=== PATIENT | female | born 1985 | race African-American/Black ===

== ENCOUNTER 2022-07-25 10:41 | Inpatient (IN) | payer MEDICAID ==
[~2022-07-25] VITALS: Ht 162.6 cm; Wt 90.7 kg
[2022-07-25] MEDS ORDERED: ONDANSETRON HCL 4MG/2ML INJ IV STA (10:58)
[2022-07-25] MEDS ORDERED: SODIUM CHLORIDE 0.9% 1,000 ML IV ONE ×3 (11:00→19:15)
[2022-07-25] MEDS ORDERED: FAMOTIDINE 20MG/2ML VIAL IV ONE (11:00)
[2022-07-25 12:00] LABS: CLARITY URINE CLEAR (CLEAR); COLOR URINE YELLOW (YELLOW); KETONES URINE 4+ (NEGATIVE); LEUKOCYTE ESTERASE URINE NEGATIVE (NEGATIVE); NITRITE URINE NEGATIVE (NEGATIVE); OCCULT BLOOD URINE 2+ (NEGATIVE); PROTEIN URINE 1+ (NEGATIVE); SPECIFIC GRAVITY URINE 1.028 (1.005-1.030); UROBILINOGEN URINE 0.2 E.U./dL (0.2-1.0)
[2022-07-25 12:42] LABS: BG BASE EXCESS -13.5 mmol/L (-2.0-2.0); BG CARBOXYHEMOGLOBIN 0.7 % (0.5-1.5); BG DEOXYHEMOGLOBIN 3.4 % (0.0-5.0); BG FRACTION INSPIRED OXYGEN 21; BG HCO3 ACT 11.5 mmol/L (22.0-26.0); BG METHEMOGLOBIN 0.4 % (0.0-1.5); BG OXYGEN SATURATION 96.6 % (92.0-98.5); BG OXYHEMOGLOBIN 95.5 % (94.0-97.0); BG PCO2 25.2 mmHg (35.0-45.0); BG PH 7.277 (7.350-7.450); BG PO2 90.5 mmHg (75.0-100.0); BG SAMPLE SITE RIGHT BRACHIAL; BG TOTAL HEMOGLOBIN 13.5 g/dL (12.0-18.0); BG VENT MODE ROOM AIR
[2022-07-25 12:58] LABS: *AMPHETAMINES SCREEN URINE NEGATIVE (NEGATIVE); *BARBITURATES SCREEN URINE NEGATIVE (NEGATIVE); *BENZODIAZEPINES SCREEN URINE NEGATIVE (NEGATIVE); *COCAINE SCREEN URINE NEGATIVE (NEGATIVE); CANNABINOID URINE SCREEN NEGATIVE (NEGATIVE); METHADONE URINE SCREEN NEGATIVE (NEGATIVE); OPIATES URINE SCREEN NEGATIVE (NEGATIVE); PHENCYCLIDINE URINE SCREEN NEGATIVE (NEGATIVE)
[2022-07-25 13:02] LABS: BASOPHILS % 0.4 % (0.0-2.0); EOSINOPHILS % 0.1 % (0.0-5.0); HEMATOCRIT. 41.4 % (36.0-48.0); HEMOGLOBIN. 13.2 g/dL (12.0-16.0); LYMPHOCYTES % 7.4 % (20.0-50.0); MEAN CORPUSCULAR VOLUME 81.7 fL (81.0-99.0); MEAN PLATELET VOLUME 9.5 fl (7.4-10.4); MONOCYTES % 14.6 % (2.0-8.0); NEUTROPHILS % 77.5 % (40.0-76.0); PLATELET 299 x1000/uL (130-400); RED BLOOD CELL COUNT 5.06 mill/uL (4.2-5.4)
[2022-07-25 13:07] LABS: HCG SCREEN NEGATIVE
[2022-07-25] MEDS ORDERED: CEFTRIAXONE 1GM PREMIX 50 ML IV ONE (14:15)
[2022-07-25] MEDS ORDERED: IPRATROPIUM/ALBUTEROL 0.5-3(2.5)MG/3ML NEB HHN PRN (16:30)
[2022-07-25] MEDS ORDERED: ONDANSETRON HCL 4MG/2ML INJ IV PRN (16:30)
[2022-07-25] MEDS ORDERED: MAGNESIUM/ALUMINUM HYDROXIDE/SIMETHICONE 30ML UDC PO PRN (16:30)
[2022-07-25] MEDS ORDERED: DOCUSATE SODIUM 100MG CAPSULE PO PRN (16:30)
[2022-07-25] MEDS ORDERED: CLONIDINE 0.1MG TABLET PO PRN (16:30)
[2022-07-25] MEDS ORDERED: HYDROCODONE/ACETAMINOPHEN 5/325MG TABLET PO PRN (16:30)
[2022-07-25] MEDS ORDERED: GUAIFENESIN 200MG/10ML SUGAR FREE UDC PO PRN (16:30)
[2022-07-25] MEDS ORDERED: ACETAMINOPHEN 325MG TABLET PO PRN ×2 (16:30)
[2022-07-25] MEDS ORDERED: NALOXONE HCL 0.4MG/ML VIAL IV PRN (16:45)
[2022-07-25] MEDS ORDERED: DEXT 5%/0.45% NACL 1000ML 1,000 ML IV SCH (16:45)
[2022-07-25] MEDS ORDERED: SODIUM CHLORIDE 0.45% 1,000 ML IV SCH (17:15)
[2022-07-25] MEDS ORDERED: LEVOFLOXACIN 750MG PREMIX 150 ML IV NR (17:30)
[2022-07-25 18:39] LABS: CHLORIDE 98 mEq/L (98-107)
[2022-07-25 18:47] LABS: ETHANOL BLOOD < 10 mg/dL
[2022-07-25] MEDS ORDERED: INSULIN REGULAR (HUMULIN R) 300UNITS/3ML VIAL IV NR (19:27)
[2022-07-25] MEDS ORDERED: DEXTROSE 50% WATER 50ML SYRINGE IV PRN ×2 (19:30→21:30)
[2022-07-25] MEDS ORDERED: MORPHINE SULFATE 4 MG/ML CPJ (NOT FOR IM USE) IV ONE (19:45)
[2022-07-25] MEDS ORDERED: SODIUM CHLORIDE 0.9% 1,000 ML IV SCH ×2 (19:45→21:30)
[2022-07-25] MEDS ORDERED: BLOOD SUGAR DIAGNOSTIC STRIP TEST SCH (21:00)
[2022-07-25] MEDS: DEXT 5%/0.45% NACL 1000ML 1,000 ML IV SCH (21:30)
[2022-07-25] MEDS ORDERED: KCL 20MEQ/100ML PREMIX 100 ML IV PRN (21:30)
[2022-07-25] MEDS ORDERED: INSULIN REGULAR (HUMULIN R) 300UNITS/3ML VIAL IV PRN (21:30)
[2022-07-25 22:00] VITALS: BP 104/75
[2022-07-25] MEDS ORDERED: INSULIN GLARGINE 100 UNITS/ML SUBCUT SCH (22:00)
[2022-07-25] MEDS ORDERED: INSULIN REGULAR 100U/100ML PMX 100 ML IV SCH ×2 (22:00)
[2022-07-25] MEDS: BLOOD SUGAR DIAGNOSTIC STRIP TEST SCH ×2 (22:19→23:12)
[2022-07-25] MEDS: ENOXAPARIN 40MG/0.4ML SYR SUBCUT SCH (23:12)
[2022-07-25] MEDS: INSULIN LISPRO 100 UNITS/ML SUBCUT SCH (23:13)
[2022-07-26] VITALS (30 sets, daily range): BP systolic 98–142; BP diastolic 18–92
[2022-07-26] MEDS: BLOOD SUGAR DIAGNOSTIC STRIP TEST SCH ×11 (00:41→21:59)
[2022-07-26 00:56] LABS: CHLORIDE 103 mEq/L (98-107)
[2022-07-26] MEDS ORDERED: INSULIN REGULAR 100U/100ML PMX 100 ML IV SCH (01:00)
[2022-07-26] MEDS ORDERED: DEXTROSE 50% WATER 50ML SYRINGE IV PRN ×3 (01:00→10:15)
[2022-07-26 01:34] LABS: PHOSPHORUS 0.8 mg/dL (2.5-4.9)
[2022-07-26] MEDS ORDERED: SODIUM PHOS,M-BASIC-D-BASIC 20 MM in DEXT 5% WATER 243.3333 ML IV NR (02:00)
[2022-07-26] MEDS: DEXT 5%/0.45% NACL 1000ML 1,000 ML IV SCH ×2 (05:21→11:14)
[2022-07-26 05:27] LABS: BASOPHILS % 0.3 % (0.0-2.0); EOSINOPHILS % 0.2 % (0.0-5.0); HEMATOCRIT. 34.4 % (36.0-48.0); HEMOGLOBIN. 10.9 g/dL (12.0-16.0); LYMPHOCYTES % 10.1 % (20.0-50.0); MEAN CORPUSCULAR HEMOGLOBIN 25.1 pg (28.0-32.0); MEAN PLATELET VOLUME 9.1 fl (7.4-10.4); MONOCYTES % 14.9 % (2.0-8.0); NEUTROPHILS % 74.5 % (40.0-76.0); PLATELET 274 x1000/uL (130-400); RED BLOOD CELL COUNT 4.36 mill/uL (4.2-5.4)
[2022-07-26] MEDS ORDERED: POTASSIUM PHOS,M-BASIC-D-BASIC 30 MMOL in DEXT 5% WATER 500 ML IV NR ×3 (05:45→20:00)
[2022-07-26 05:49] LABS: CHLORIDE 103 mEq/L (98-107)
[2022-07-26 06:15] LABS: HDL CHOLESTEROL 11 mg/dL (40-59); LDL CHOLESTEROL 61 mg/dL (5-100); T4 FREE 1.25 ng/dL (0.76-1.46)
[2022-07-26] MEDS: INSULIN LISPRO 100 UNITS/ML SUBCUT SCH ×4 (07:00→22:01)
[2022-07-26] MEDS ORDERED: INSULIN LISPRO 100 UNITS/ML SUBCUT SCH ×2 (07:50→08:30)
[2022-07-26] MEDS ORDERED: LIDOCAINE HCL 1% 30ML VIAL (10MG/ML) ONE (08:42)
[2022-07-26] MEDS ORDERED: ZINC OXIDE 20% OINT 30GM TOP SCH (09:15)
[2022-07-26] MEDS ORDERED: INSULIN GLARGINE 100 UNITS/ML SUBCUT SCH ×4 (10:30→22:00)
[2022-07-26] MEDS ORDERED: LEVOFLOXACIN 750MG PREMIX 150 ML IV SCH (11:00)
[2022-07-26] MEDS: PANTOPRAZOLE SODIUM 40 MG/VIAL IV SCH (11:12)
[2022-07-26] MEDS: INSULIN GLARGINE 100 UNITS/ML SUBCUT SCH (11:12)
[2022-07-26] MEDS: LEVOFLOXACIN 750MG PREMIX 150 ML IV SCH (13:24)
[2022-07-26 16:22] LABS: CHLORIDE 101 mEq/L (98-107)
[2022-07-26 16:29] LABS: PHOSPHORUS 1.2 mg/dL (2.5-4.9)
[2022-07-26] MEDS: SODIUM CHLORIDE 0.9% 1,000 ML IV SCH (17:24)
[2022-07-26] MEDS: ENOXAPARIN 40MG/0.4ML SYR SUBCUT SCH (22:01)
[2022-07-27] MEDS: SODIUM CHLORIDE 0.9% 1,000 ML IV SCH ×3 (03:46→23:00)
[2022-07-27 04:00] VITALS: BP 109/67
[2022-07-27] MEDS: BLOOD SUGAR DIAGNOSTIC STRIP TEST SCH ×4 (07:20→21:13)
[2022-07-27 08:00] VITALS: BP 123/79
[2022-07-27] MEDS ORDERED: LACTULOSE 20G/30ML UDC PO PRN (09:00)
[2022-07-27] MEDS: PANTOPRAZOLE SODIUM 40 MG/VIAL IV SCH (09:04)
[2022-07-27] MEDS: INSULIN GLARGINE 100 UNITS/ML SUBCUT SCH (09:11)
[2022-07-27] MEDS: INSULIN LISPRO 100 UNITS/ML SUBCUT SCH ×6 (09:22→21:13)
[2022-07-27 12:00] VITALS: BP 118/76
[2022-07-27 13:20] LABS: HEMATOCRIT. 30.9 % (36.0-48.0); HEMOGLOBIN. 10.2 g/dL (12.0-16.0); MEAN CORPUSCULAR HEMOGLOBIN 25.7 pg (28.0-32.0); MEAN CORPUSCULAR VOLUME 77.4 fL (81.0-99.0); MEAN PLATELET VOLUME 8.8 fl (7.4-10.4); PLATELET 253 x1000/uL (130-400); RED BLOOD CELL COUNT 3.99 mill/uL (4.2-5.4); RED CELL DISTRIBUTION WIDTH 18.3 % (11.6-14.6)
[2022-07-27] MEDS: LEVOFLOXACIN 750MG PREMIX 150 ML IV SCH (13:20)
[2022-07-27 13:36] LABS: CHLORIDE 104 mEq/L (98-107)
[2022-07-27 13:42] LABS: PHOSPHORUS 1.8 mg/dL (2.5-4.9)
[2022-07-27 13:48] LABS: PLATELET ESTIMATE NORMAL
[2022-07-27] MEDS ORDERED: POTASSIUM CHLORIDE 20MEQ TABLET SR PO NR (14:46)
[2022-07-27 16:00] VITALS: BP 119/66
[2022-07-27] MEDS ORDERED: POTASSIUM PHOS,M-BASIC-D-BASIC 20 MMOL in DEXT 5% WATER 243.3333 ML IV NR (16:00)
[2022-07-27] MEDS: ENOXAPARIN 30MG/0.3ML SYR SUBCUT SCH (17:48)
[2022-07-27 20:00] VITALS: BP 116/68
[2022-07-27] MEDS: MUPIROCIN 2% OINT 22GM NS SCH (20:45)
[2022-07-28 04:00] VITALS: BP 110/61
[2022-07-28] MEDS: ENOXAPARIN 30MG/0.3ML SYR SUBCUT SCH ×2 (06:52→17:43)
[2022-07-28] MEDS ORDERED: PANTOPRAZOLE 40MG DR TABLET PO SCH (07:20)
[2022-07-28] MEDS: BLOOD SUGAR DIAGNOSTIC STRIP TEST SCH ×4 (07:20→21:00)
[2022-07-28 08:00] VITALS: BP 109/65
[2022-07-28] MEDS: INSULIN LISPRO 100 UNITS/ML SUBCUT SCH ×7 (08:50→21:59)
[2022-07-28] MEDS: SODIUM CHLORIDE 0.9% 1,000 ML IV SCH ×2 (09:00→17:43)
[2022-07-28] MEDS ORDERED: BISACODYL 5MG TABLET PO SCH (09:30)
[2022-07-28] MEDS: INSULIN GLARGINE 100 UNITS/ML SUBCUT SCH (11:30)
[2022-07-28 12:00] VITALS: BP 119/73
[2022-07-28] MEDS: LEVOFLOXACIN 750MG PREMIX 150 ML IV SCH (13:00)
[2022-07-28] MEDS: MUPIROCIN 2% OINT 22GM NS SCH ×2 (13:16→22:09)
[2022-07-28 16:00] VITALS: BP 117/60
[2022-07-28 16:06] LABS: BASOPHILS % 0.7 % (0.0-2.0); EOSINOPHILS % 0.8 % (0.0-5.0); HEMATOCRIT. 31.2 % (36.0-48.0); HEMOGLOBIN. 10.4 g/dL (12.0-16.0); LYMPHOCYTES % 18.1 % (20.0-50.0); MEAN CORPUSCULAR HEMOGLOBIN 25.8 pg (28.0-32.0); MEAN CORPUSCULAR VOLUME 77.1 fL (81.0-99.0); MEAN PLATELET VOLUME 8.9 fl (7.4-10.4); MONOCYTES % 9.9 % (2.0-8.0); NEUTROPHILS % 70.5 % (40.0-76.0); PLATELET 315 x1000/uL (130-400); RED BLOOD CELL COUNT 4.04 mill/uL (4.2-5.4); RED CELL DISTRIBUTION WIDTH 18.3 % (11.6-14.6)
[2022-07-28 16:27] LABS: CHLORIDE 104 mEq/L (98-107)
[2022-07-28] MEDS ORDERED: POTASSIUM CHLORIDE 20MEQ TABLET SR PO NR (17:30)
[2022-07-28] MEDS ORDERED: MICONAZOLE NITRATE 100MG VAG SUPP VG SCH (21:00)
[2022-07-28] MEDS ORDERED: INSULIN GLARGINE 100 UNITS/ML SUBCUT SCH (22:00)
== END 2022-07-29 00:45 | disposition left against medical advice (07) | DRG 720 ==
LOC: ER 10:41 → ENRESERV 13:33 → CVICU 16:21 → EDBEDREQ 16:24 → EDBEDREQTM 16:24 → EDBEDREQSVC 16:24 → 7EST 23:50 → MICUSO 07-26 00:10 → 6EST 07-26 22:20
PROVIDERS: ADMIT Hospitalist; ATTEND Hospitalist
PROC: 05HY33Z Insertion of Infusion Device into Upper Vein, Percutaneous Approach (ICD-10-PCS; principal; 2022-07-26)
PROC: B54MZZA Ultrasonography of Right Upper Extremity Veins, Guidance (ICD-10-PCS; 2022-07-26)
DX: A41.9 Sepsis, unspecified organism (principal); E11.10 Type 2 diabetes mellitus with ketoacidosis without coma; E43 Unspecified severe protein-calorie malnutrition; E83.39 Other disorders of phosphorus metabolism; E87.1 Hypo-osmolality and hyponatremia; B37.31 Acute candidiasis of vulva and vagina; N12 Tubulo-interstitial nephritis, not specified as acute or chronic; E11.65 Type 2 diabetes mellitus with hyperglycemia; Z20.822 Contact with and (suspected) exposure to COVID-19; Z53.29 Procedure and treatment not carried out because of patient's decision for other reasons; E78.5 Hyperlipidemia, unspecified; S00.522A Blister (nonthermal) of oral cavity, initial encounter; E66.9 Obesity, unspecified; E78.00 Pure hypercholesterolemia, unspecified; K59.00 Constipation, unspecified; I10 Essential (primary) hypertension; F17.210 Nicotine dependence, cigarettes, uncomplicated; Z68.32 Body mass index [BMI] 32.0-32.9, adult; Z59.00 Homelessness unspecified; Z88.0 Allergy status to penicillin; Z98.891 History of uterine scar from previous surgery; Z91.14 Patient's other noncompliance with medication regimen; Z79.4 Long term (current) use of insulin; Z80.9 Family history of malignant neoplasm, unspecified; X58.XXXA Exposure to other specified factors, initial encounter; Y93.89 Activity, other specified; Y92.89 Other specified places as the place of occurrence of the external cause; Y99.8 Other external cause status
CPT/HCPCS: 36415; 36573; 36600; 71045; 74176; 80048; 80053; 80061; 80305; 80320; 81003; 82010; 82375; 82805; 82962; 83036; 83605; 83735; 84100; 84145; 84439; 84443; 84481; 84703; 85025; 87426; 93970; 97162; 99285; C1725; C9113; J1650; J1815; J1956; J2270; J2405; J3490; J7030; J7060; G0480